=== PATIENT | male | born 1970 | race Two or more races ===

== ENCOUNTER 2017-01-29 15:21 | Emergency (ER) | payer MEDICAID ==
[~2017-01-29] VITALS: Ht 175.3 cm; Wt 73.0 kg
[2017-01-29 15:30] VITALS: Ht 175.3 cm; Wt 73.0 kg
[2017-01-29 16:04] VITALS: BP 110/74; PULSE 88; RESP 20; TEMP 98
--- NOTE | 2017-01-29 17:06 | ERD ---
ER Documentation Chief Complaint Date/Time DATE: 01/29/17 TIME: 17:00 Chief Complaint Pt BIB RA for ETOH use, in and out hospital last 3 days. HPI Patient is a 47-year-old male with schizophrenia, diabetes, and hypertension who was brought in by ambulance. He admits to drinking alcohol. He said that he has been on a del cid the past few days. The patient says "I drank 100 beers since yesterday". His sugar by paramedics is 178. A bystander called 911. He says "I need insulin". He denies suicidal or homicidal ideation. He said that he is homeless and would like referrals to the local shelters. Upon review of old medical records the patient one previous visit to the ER in 2008. ROS All systems reviewed and are negative except as per history of present illness. Allergies Allergies: Coded Allergies: Penicillins (Verified Allergy, 01/29/17) PMhx/Soc History of Surgery: No Anesthesia Reaction: No Hx Neurological Disorder: No Hx Respiratory Disorders: No Hx Cardiac Disorders: No Hx Psychiatric Problems: Yes (ETOH ABUSE) Hx Miscellaneous Medical Probl: Yes (DM) Hx Alcohol Use: Yes Hx Substance Use: Yes Hx Tobacco Use: Yes Smoking Status: Current every day smoker FmHx Family History: No diabetes Physical Exam Vitals Vital Signs Date Time Temp Pulse Resp B/P Pulse Ox O2 Delivery O2 Flow Rate FiO2 01/29/17 16:04 98.0 88 20 110/74 97 Room Air 01/29/17 15:30 97.7 116 20 111/73 97 Physical Exam Const: No acute distress Head: Atraumatic Eyes: Normal Conjunctiva ENT: Normal External Ears, Nose and Mouth. Neck: Full range of motion..~ No meningismus. Resp: Clear to auscultation bilaterally Cardio: Tachycardic rate without murmur Abd: Soft, non tender, non distended. Normal bowel sounds Skin: No petechiae or rashes Back: No midline or flank tenderness Ext: No cyanosis, or edema Neur: Awake and alert Psych: Normal Mood and Affect Results 24 hrs Laboratory Tests Test 01/29/17 15:30 Bedside Glucose 114mg/dL Procedures/MDM Smoking Cessation Therapy: Pt. was lectured for greater than 3 minutes on the health risks of continued smoking and the benefits of cessation. Accu-Chek is normal. Patient is a 47-year-old male who admits to alcohol abuse. He is answering questions and his laboratory without difficulty in the emergency department. His sugar is normal and I do not believe he needs insulin at this time. The patient was given a list of the local substance abuse treatment centers as well as well as the list of local shelters. The patient does not require further workup or admission the hospital at this time. I believe outpatient management is appropriate. He does not appear to be a danger to himself or to others. Departure Diagnosis: Primary Impression: Alcohol abuse Condition: Fair Patient Instructions: Alcohol Abuse Referrals: [facility] YOU HAVE RECEIVED A MEDICAL SCREENING EXAM AND THE RESULTS INDICATE THAT YOU DO NOT HAVE A CONDITION THAT REQUIRES URGENT TREATMENT IN THE EMERGENCY DEPARTMENT. FURTHER EVALUATION AND TREATMENT OF YOUR CONDITION CAN WAIT UNTIL YOU ARE SEEN IN YOUR DOCTORS OFFICE WITHIN THE NEXT 1-2 DAYS. IT IS YOUR RESPONSIBILITY TO MAKE AN APPOINTMENT FOR FOLOW-UP CARE. IF YOU HAVE A PRIMARY DOCTOR --you should call your primary doctor and schedule an appointment IF YOU DO NOT HAVE A PRIMARY DOCTOR YOU CAN CALL OUR PHYSICIAN REFERRAL HOTLINE AT IF YOU CAN NOT AFFORD TO SEE A PHYSICIAN YOU CAN CHOSE FROM THE FOLLOWING [facility] [address] [facility] [facility] [address] [facility] [facility] [address] [facility] [facility] [address] [facility] [facility] [facility] [address] [facility]. [facility]. [address] Additional Instructions: Call your primary care doctor TOMORROW for an appointment during the next 1-2 days.See the doctor sooner or return here if your condition worsens before your appointment time. MOIRA GUILLEN MD Jan 29, 2017 17:06
== END 2017-01-29 16:17 | disposition home or self-care (01) ==
LOC: E/R 15:21
DX: F10.10 Alcohol abuse, uncomplicated (principal); E11.9 Type 2 diabetes mellitus without complications; I10 Essential (primary) hypertension; F17.210 Nicotine dependence, cigarettes, uncomplicated
CPT/HCPCS: 82962; Z7502; 99283

== ENCOUNTER 2018-06-09 15:54 | Emergency (ER) | END 2018-06-09 20:35 ==